=== PATIENT | female | born 1960 | race Caucasian/White ===

== ENCOUNTER → 2016-09-11 | Outpatient (CLI) | payer MEDICAID ==
[2016-09-11 16:52] VITALS: BP 143/67; PULSE 61; RESP 16; TEMP 97.7; BMI 58.3
[2016-09-11 17:35] LABS: CHCM 31.3; HCT 40.4 % (34.0-46.0); HDW 2.51; HGB 13.1 gm/dL (11.4-16.0); Hypochromasia Slight; MCHC 32.3 g/dL (31.0-37.0); MCV 83.5 fL (80.0-100.0); Mean Platelet Volume 7.9; RBC 4.84 m/uL (3.80-5.40); RDW 15.6 % (11.5-15.5)
[2016-09-11 17:39] LABS: Prothrombin Time 10.3 sec (9.0-12.0)
[2016-09-11 17:51] LABS: ALT 36 U/L (9-52); AST 23 U/L (14-36); Alkaline Phosphatase 51 U/L (38-126); Anion Gap 12 mmol/L; Blood Urea Nitrogen 23 mg/dL (7-17); Calcium 9.8 mg/dL (8.4-10.2); Carbon Dioxide 26 mmol/L (22-30); Chloride 103 mmol/L (98-107); Cholesterol 186 mg/dL (<200); Glucose 126 mg/dL (74-99); HDL Cholesterol 58 mg/dL (40-60); Iron 54 ug/dL (37-170); Magnesium 1.9 mg/dL (1.6-2.3); Non-African American GFR(MDRD) >60 (>60 ml/min/1.73 sqM); Potassium 4.4 mmol/L (3.5-5.1); Sodium 141 mmol/L (137-145); Total Bilirubin 0.5 mg/dL (0.2-1.3); Total Protein 6.5 g/dL (6.3-8.2); Triglycerides 163 mg/dL (<150)
[2016-09-11 18:01] LABS: % Iron Saturation 16.3 % (20-50); Prealbumin 22 mg/dL (18-36); Total Iron Binding Capacity 331 ug/dL (265-497)
[2016-09-11 18:56] LABS: Vitamin B12 331 pg/mL (239-931)
[2016-09-11 19:27] LABS: Hemoglobin A1C 7.5 % (4.2-6.1)
--- NOTE | 2016-09-13 09:24 | P.PN ---
Progress Note - Text To Whom It May Concern: Keara Martin is under my surgical care. She has a complicated postoperative recovery including persistent abdominal pain which will require at least another 2 weeks of recovery. Her abdominal pain limits her day-to-day activities and is being managed closely. Anticipated return to work without restrictions is 09/29/2016. Feel free to contact us if questions. Sincerely Nisa Cabrera MD, FACS, FICS, Dip ABOM Director of [facility]
[2016-09-19 18:11] LABS: Selenium 147 mcg/L (63-160)
--- NOTE | 2016-09-22 20:18 | P.PN ---
Progress Note - Text DATE OF SERVICE: 09/11/2016 CHIEF COMPLAINT: Follow-up gastric bypass. HISTORY OF PRESENT ILLNESS: Keara Martin is a 56-year-old female who is status post Michael-en-Y gastric bypass on 08/05/2016. Since her procedure still reports chronic abdominal pain at her incision. Her pain is specific at the left upper quadrant. She reports eating only 75 grams daily of her protein. Of good news, she no longer has any heartburn. She is still taking omeprazole. Prior to surgery she had weighed as much as 296 pounds. Today she comes in weighing 253 pounds. She has lost approximately 43 pounds since being in the program. PHYSICAL EXAM: VITAL SIGNS: 97.7, 61, 16, 143/67; 5 foot 4-3/4 inch, 253 pounds. Body mass index of 42.9. ABDOMEN: Protuberant, soft, however, focal persistent tenderness along the left upper quadrant. No palpable incisional hernias at this time. MUSCULOSKELETAL: No clubbing, cyanosis, or edema. GENERAL: Well-developed female, in no acute distress. HEENT: No scleral icterus. Extraocular movements grossly intact. Moist buccal mucosa. NECK: Supple without lymphadenopathy. CHEST: Nonlabored respirations with equal bilateral excursions. CARDIOVASCULAR: Regular rate and rhythm. Palpable 2+ radial pulses. NEURO: No focal or lateralizing signs. Cranial nerves II through XII grossly within normal limits. PSYCH: Appropriate affect. Alert and oriented to person, place, and time. ASSESSMENT: 1. Morbid obesity due to excess calories. 2. Status post Michael-en-Y gastric bypass. 3. Body mass index reduced from 50.8 down to 42.9. 4. Persistent left upper quadrant abdominal pain. 5. Dietary surveillance and counseling. 6. Diabetes type 2, insulin-dependent, controlled. 7. Personal history of diabetes associated with nephropathy. PLAN: 1. Recommend bariatric metabolic panel. 2. At this time she still has persistent pain, which puts her at risk for postsurgical complications. I have strictly forewarned her from going back to work prematurely. I recommend return to work at least another 2 more weeks; otherwise in the beginning of September without restrictions. 3. May return to work on September 29, 2016. 4. In the interim, she will continue to stay on omeprazole for pouch care. 5. She has history of being on insulin and has discontinued this at this time. ADDENDUM: LABS: Hemoglobin normal at 13.1. RDW elevated at 15.6. BUN elevated at 23. Glucose elevated at 126. Hemoglobin A1c down from 8 to 7.5. Percent iron saturation was 16.3. Triglycerides elevated at 163. 1. Upon review of her bariatric metabolic panel, HgA1C has improved. She reports not taking any further medications for her blood sugars. 2. Recommend tight glycemic control, particularly of protein diet with goal over 75 grams daily.
== END | disposition home or self-care (01) ==
LOC: BARWHC3 15:56
PROVIDERS: ATTEND Surgery Plastic and Reconstructive Surgery
DX: Z48.815 Encounter for surgical aftercare following surgery on the digestive system (principal); E66.01 Morbid (severe) obesity due to excess calories; Z68.41 Body mass index [BMI] 40.0-44.9, adult; Z98.84 Bariatric surgery status; G89.28 Other chronic postprocedural pain; Z71.3 Dietary counseling and surveillance; E11.21 Type 2 diabetes mellitus with diabetic nephropathy; Z79.4 Long term (current) use of insulin; Z79.899 Other long term (current) drug therapy
CPT/HCPCS: 80053; 80061; 82306; 82525; 82607; 82728; 82746; 83036; 83540; 83550; 83735; 83970; 84100; 84134; 84255; 84425; 84443; 84590; 84630; 85027; 85610; 85730; 99211

== ENCOUNTER → 2016-11-07 | Outpatient (CLI) | payer MEDICAID ==
[2016-11-07 11:56] VITALS: BMI 39.3
[2016-11-07 13:47] VITALS: BP 146/93; PULSE 64; TEMP 98.2
[2016-11-07 14:42] LABS: CH 27.6; HCT 41.3 % (34.0-46.0); HGB 13.6 gm/dL (11.4-16.0); MCH 27.6 pg (25.0-35.0); MCHC 32.9 g/dL (31.0-37.0); Mean Platelet Volume 8.4; RBC 4.91 m/uL (3.80-5.40); RDW 15.3 % (11.5-15.5); WBC 5.7 k/uL (3.8-10.6)
[2016-11-07 14:46] LABS: INR 1.1 (<1.1); Partial Thromboplastin Time 24.1 sec (22.0-30.0); Prothrombin Time 10.7 sec (9.0-12.0)
[2016-11-07 14:49] LABS: ALT 45 U/L (9-52); AST 32 U/L (14-36); Alkaline Phosphatase 61 U/L (38-126); Anion Gap 10 mmol/L; Blood Urea Nitrogen 21 mg/dL (7-17); Calcium 9.7 mg/dL (8.4-10.2); Carbon Dioxide 30 mmol/L (22-30); Chloride 102 mmol/L (98-107); Cholesterol 191 mg/dL (<200); Glucose 135 mg/dL (74-99); HDL Cholesterol 56 mg/dL (40-60); Iron 48 ug/dL (37-170); Magnesium 1.8 mg/dL (1.6-2.3); Non-African American GFR(MDRD) >60 (>60 ml/min/1.73 sqM); Phosphorous 4.5 mg/dL (2.5-4.5); Potassium 4.3 mmol/L (3.5-5.1); Sodium 142 mmol/L (137-145); Total Bilirubin 0.7 mg/dL (0.2-1.3); Triglycerides 213 mg/dL (<150)
[2016-11-07 14:59] LABS: % Iron Saturation 14.3 % (20-50); Prealbumin 21 mg/dL (18-36); Total Iron Binding Capacity 335 ug/dL (265-497)
[2016-11-07 15:54] LABS: Vitamin B12 728 pg/mL (239-931)
[2016-11-07 16:11] LABS: Hemoglobin A1C 7.7 % (4.2-6.1)
[2016-11-13 15:37] LABS: Selenium 147 mcg/L (63-160)
--- NOTE | 2016-12-12 06:30 | P.PN ---
Progress Note - Text DATE OF SERVICE: 11/07/2016 CHIEF COMPLAINT: Bariatric assessment. HISTORY OF PRESENT ILLNESS: Keara Martin is status post Michael-en-Y gastric bypass on 08/05/2016. She is now 3 months out. Her highest weight in the program was 296 pounds. Today she comes weighing 236 pounds. At her 5 feet 4-3/4 inches frame, her ideal body weight is 149 pounds. She has lost 60 pounds. Percent excess weight loss is 41%. Body mass index is reduced from 49.7 down to 39.7. BMI point reduction is 10 points. She is 87 pounds overweight. In fact, she has been discontinued on over 30+ medications. She is barely on any insulin. Blood sugars are between 90 to 120 blood sugar glucose. PAST MEDICAL HISTORY: 1. Morbid obesity. 2. Insulin-dependent type 2, poorly controlled. 3. Kidney stones. 4. Gastroesophageal reflux disease. 5. Hiatal hernia. 6. Osteoarthritis of the right knee. 7. Osteoarthritis of the left shoulder. 8. Bladder incontinence. 9. Panniculitis. 10. Uterine polyps. 11. Hypercholesterolemia. 12. Neuropathy. 13. Diverticulosis. 14. Chronic constipation. PAST SURGICAL HISTORY: 1. Colonoscopy. 2. Upper endoscopy. 3. Dilatation and curettage. 4. EGD. 5. Status post Michael-en-Y gastric bypass on 08/05/2016. MEDICATIONS: 1. Omeprazole. 2. Nystatin. 3. Gabapentin. 4. Flexeril. ALLERGIES: Denies. 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 No reports of Crohn disease or ulcerative colitis. No reports of esophageal or stomach cancer. No reports of food allergies. No reports of lupus. REVIEW OF SYSTEMS: CONSTITUTIONAL: Highest weight of 296 pounds. [place] body weight is 149 pounds. She is 236 pounds. Weight loss 60 pounds. She has 41% excess weight loss. She has lost 17 pounds in one month. ENDOCRINE: Complete resolution of diabetes type 2. RESPIRATORY: Moderate reduction of oxygen for CPAP machine. CARDIOVASCULAR: Resolved hypertension. HEENT: Denies any active trouble with vision or hearing. No reports of poor dentition. RESPIRATORY: She does have history of daytime somnolence. No recent sleep apnea evaluation, however. It is pending however. GASTROINTESTINAL: Resolved gastroesophageal reflux disease. No reports of chronic diarrhea. Does report fatty food intolerance. MUSCULOSKELETAL: Has degenerative joint disease of the lumbar spine. Also reports osteoarthritis of the knee as well as shoulder is improved. NEUROLOGIC: No reports of stroke or seizure disorders. PSYCH: No reports of active depression or suicidal ideation. HEMATOLOGIC: Denies any easy bruising or bleeding. Denies any known family history of DVT. PSYCH: No reports of depression or suicidal ideation. PHYSICAL EXAM: VITAL SIGNS: 98.2, 64, 146/93, 14; 5 feet 4-3/4 inch frame, 236 pounds, body mass index of 39.7. ABDOMEN: Soft, nontender, nondistended. Panniculitis. No palpable incisional hernias. GENERAL: Well-developed female in no acute distress. HEENT: No scleral icterus. Extraocular movements grossly intact. Moist buccal mucosa. NECK: Supple without lymphadenopathy. CHEST: Nonlabored respirations with equal bilateral excursions. CARDIOVASCULAR: Regular rate and rhythm. Palpable 2+ radial pulses. MUSCULOSKELETAL: No clubbing, cyanosis, or edema. NEURO: No focal or lateralizing signs. Cranial nerves II through XII grossly within normal limits. PSYCH: Appropriate affect. Alert and oriented to person, place, and time. ASSESSMENT: 1. Morbid obesity due to excess caloric intake. 2. Body mass index reduced from 49.7 down to 39.7. 3. Dietary surveillance and counseling. 4. Gastroesophageal reflux disease. 5. History of iron deficiency anemia. 6. Insulin-dependent diabetes type 2, resolved. 7. Osteoarthritis of the lower back, improved. 8. Osteoarthritis of the knee, improved. 9. History of gallbladder disease. 10. Familial history of morbid obesity. 11. History of bladder incontinence. 12. Personal history of panniculitis. 13. Hypercholesterolemia. 14. History of diabetes associated neuropathy. 15. Chronic gastritis. 16. Superficial gastric ulcers. 17. Dietary surveillance and counseling. 18. Hypertensive heart disease without cardiomyopathy or heart failure. 19. Michael-en-Y gastric bypass. 20. Obstructive sleep apnea, resolved. 21. Panniculitis. PLAN: 1. Recommend bariatric metabolic panel for follow-up. 2. She has panniculitis. Recommend nystatin powder. 3. Overall she has done fairly well losing 60 pounds in 3 months. LABS: BUN elevated at 21. Glucose elevated at 135. Hemoglobin A1c reduced from 8 down to 7.7. Percent iron saturation low at 14.3. Triglycerides 213.
== END | disposition home or self-care (01) ==
LOC: BARWHC3 11:30
PROVIDERS: ATTEND Surgery Plastic and Reconstructive Surgery
DX: Z48.815 Encounter for surgical aftercare following surgery on the digestive system (principal); E66.01 Morbid (severe) obesity due to excess calories; Z71.3 Dietary counseling and surveillance; Z68.39 Body mass index [BMI] 39.0-39.9, adult; Z98.84 Bariatric surgery status
CPT/HCPCS: 80053; 80061; 82306; 82525; 82607; 82728; 82746; 83036; 83540; 83550; 83735; 83970; 84100; 84134; 84255; 84425; 84443; 84590; 84630; 85027; 85610; 85730; 99211

== ENCOUNTER → 2017-03-05 | Outpatient (CLI) | payer MEDICAID ==
[2017-03-05 15:36] VITALS: BP 128/69; PULSE 59; RESP 16; TEMP 98.2; BMI 36.1
[2017-03-05 17:45] LABS: CH 27.4; CHCM 33.5; HCT 39.7 % (34.0-46.0); HDW 2.67; HGB 13.8 gm/dL (11.4-16.0); MCH 28.5 pg (25.0-35.0); MCHC 34.7 g/dL (31.0-37.0); MCV 82.2 fL (80.0-100.0); RBC 4.84 m/uL (3.80-5.40); RDW 13.8 % (11.5-15.5); WBC 6.2 k/uL (3.8-10.6)
[2017-03-05 17:51] LABS: INR 1.1 (<1.1); Partial Thromboplastin Time 24.7 sec (22.0-30.0); Prothrombin Time 10.6 sec (9.0-12.0)
[2017-03-05 18:02] LABS: ALT 53 U/L (9-52); AST 35 U/L (14-36); Alkaline Phosphatase 68 U/L (38-126); Anion Gap 11 mmol/L; Blood Urea Nitrogen 22 mg/dL (7-17); Calcium 9.9 mg/dL (8.4-10.2); Carbon Dioxide 28 mmol/L (22-30); Chloride 104 mmol/L (98-107); Cholesterol 168 mg/dL (<200); Glucose 104 mg/dL (74-99); HDL Cholesterol 64 mg/dL (40-60); Iron 69 ug/dL (37-170); Magnesium 1.8 mg/dL (1.6-2.3); Non-African American GFR(MDRD) >60 (>60 ml/min/1.73 sqM); Phosphorous 4.5 mg/dL (2.5-4.5); Potassium 4.1 mmol/L (3.5-5.1); Sodium 143 mmol/L (137-145); Total Bilirubin 0.7 mg/dL (0.2-1.3); Total Protein 6.9 g/dL (6.3-8.2)
[2017-03-05 18:19] LABS: % Iron Saturation 18.5 % (20-50); Prealbumin 22 mg/dL (18-36); Total Iron Binding Capacity 373 ug/dL (265-497)
[2017-03-05 19:05] LABS: Vitamin B12 931 pg/mL (239-931)
[2017-03-05 20:18] LABS: Hemoglobin A1C 6.8 % (4.2-6.1)
[2017-03-11 16:44] LABS: Selenium 133 mcg/L (63-160)
--- NOTE | 2017-04-05 12:13 | P.PN ---
Progress Note - Text DATE OF SERVICE: 03/05/2017 CHIEF COMPLAINT: Bariatric assessment. HISTORY OF PRESENT ILLNESS: Keara Martin is status post Michael-en-Y gastric bypass on 08/05/2016. She is 7 months out. Her highest weight in the program was 296 pounds. Today she comes weighing 215 pounds. At her 5 feet 4-3/4 inches frame, her ideal body weight is 144 pounds. She has lost 81 pounds. Since her last follow-up 4 months ago, she lost another 21 pounds. Percent excess weight loss is 53%. She has to improve her daily activities. Body mass index is reduced from 49.7 down to 36.1. BMI point reduction is 13.6 points. She is 71 pounds overweight. She has stopped her insulin as her blood sugars are consistently under 150. Her personal goal is to get down to 192 pounds. She reports chronic panniculitis. She reports mild improvement of her blood pressure. She reports improvement of her osteoarthritis. She now presents for her over 6 month follow-up. PAST MEDICAL HISTORY: 1. Morbid obesity. 2. Insulin-dependent type 2, poorly controlled. 3. Kidney stones. 4. Gastroesophageal reflux disease. 5. Hiatal hernia. 6. Osteoarthritis of the right knee. 7. Osteoarthritis of the left shoulder. 8. Bladder incontinence. 9. Panniculitis. 10. Uterine polyps. 11. Hypercholesterolemia. 12. Neuropathy. 13. Diverticulosis. 14. Chronic constipation. PAST SURGICAL HISTORY: 1. Colonoscopy. 2. Upper endoscopy. 3. Dilatation and curettage. 4. EGD. 5. Status post Michael-en-Y gastric bypass on 08/05/2016. MEDICATIONS: 1. Omeprazole. 2. Nystatin. 3. Gabapentin. 4. Flexeril. ALLERGIES: Denies. 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 No reports of Crohn disease or ulcerative colitis. No reports of esophageal or stomach cancer. No reports of food allergies. No reports of lupus. REVIEW OF SYSTEMS: CONSTITUTIONAL: Highest weight of 296 pounds. [place] body weight is 144 pounds. She is 215 pounds. Weight loss 81 pounds. She has 53 % excess weight loss. She has lost 21 pounds in 4 months. ENDOCRINE: Complete resolution of diabetes type 2. No thyroid disorder. RESPIRATORY: Sleep apnea resolved. No pneumonia. CARDIOVASCULAR: Resolved hypertension. Improved hyperlipidemia. HEENT: Denies any active trouble with vision or hearing. No reports of poor dentition. GASTROINTESTINAL: Resolved gastroesophageal reflux disease. No reports of dumping syndrome. MUSCULOSKELETAL: Has degenerative joint disease of the lumbar spine improved. Also reports osteoarthritis of the knee as well as shoulder is improved. NEUROLOGIC: No reports of stroke or seizure disorders. PSYCH: No reports of active depression or suicidal ideation. HEMATOLOGIC: Denies any easy bruising or bleeding. Denies any known family history of DVT. PSYCH: No reports of depression or suicidal ideation. SKIN: No rash or history of skin cancer. PHYSICAL EXAM: VITAL SIGNS: 5 feet 4-3/4 inch frame, 215 pounds, body mass index of 36.1. Vital Signs Temp 98.2 F 03/05/17 15:29 Pulse 59 L 03/05/17 15:29 Resp 16 03/05/17 15:29 BP 128/69 03/05/17 15:29 Pulse Ox ABDOMEN: Soft, nontender, nondistended. Panniculitis. No palpable incisional hernias. GENERAL: Well-developed female in no acute distress. HEENT: No scleral icterus. Extraocular movements grossly intact. Moist buccal mucosa. NECK: Supple without lymphadenopathy. CHEST: Nonlabored respirations with equal bilateral excursions. CARDIOVASCULAR: Regular rate and rhythm. Palpable 2+ radial pulses. MUSCULOSKELETAL: No clubbing, cyanosis, or edema. NEURO: No focal or lateralizing signs. Cranial nerves II through XII grossly within normal limits. PSYCH: Appropriate affect. Alert and oriented to person, place, and time. SKIN: Well perfused. Good skin turgor. LABS: Laboratory Last Values WBC 6.2 k/uL (3.8-10.6) 03/05/17 16:49 RBC 4.84 m/uL (3.80-5.40) 03/05/17 16:49 Hgb 13.8 gm/dL (11.4-16.0) 03/05/17 16:49 Hct 39.7 % (34.0-46.0) 03/05/17 16:49 MCV 82.2 fL (80.0-100.0) 03/05/17 16:49 MCH 28.5 pg (25.0-35.0) 03/05/17 16:49 MCHC 34.7 g/dL (31.0-37.0) 03/05/17 16:49 RDW 13.8 % (11.5-15.5) 03/05/17 16:49 Plt Count 258 k/uL (150-450) 03/05/17 16:49 PT 10.6 sec (9.0-12.0) 03/05/17 16:49 INR 1.1 (<1.1) 03/05/17 16:49 APTT 24.7 sec (22.0-30.0) 03/05/17 16:49 Sodium 143 mmol/L (137-145) 03/05/17 16:49 Potassium 4.1 mmol/L (3.5-5.1) 03/05/17 16:49 Chloride 104 mmol/L (98-107) 03/05/17 16:49 Carbon Dioxide 28 mmol/L (22-30) 03/05/17 16:49 Anion Gap 11 mmol/L 03/05/17 16:49 BUN 22 mg/dL (7-17) H 03/05/17 16:49 Creatinine 0.80 mg/dL (0.52-1.04) 03/05/17 16:49 Est GFR (MDRD) Af Amer >60 (>60 ml/min/1.73 sqM) 03/05/17 16:49 Est GFR (MDRD) Non-Af >60 (>60 ml/min/1.73 sqM) 03/05/17 16:49 Glucose 104 mg/dL (74-99) H 03/05/17 16:[address] Glu mg/dL 148 mg/dL 03/05/17 16:49 Hemoglobin A1c 6.8 % (4.2-6.1) H 03/05/17 16:49 Calcium 9.9 mg/dL (8.4-10.2) 03/05/17 16:49 Phosphorus 4.5 mg/dL (2.5-4.5) 03/05/17 16:49 Magnesium 1.8 mg/dL (1.6-2.3) 03/05/17 16:49 Iron 69 ug/dL (37-170) 03/05/17 16:49 TIBC 373 ug/dL (265-497) 03/05/17 16:49 % Saturation 18.5 % (20-50) L 03/05/17 16:49 Ferritin 10 ng/mL (11-264) L 03/05/17 16:49 Total Bilirubin 0.7 mg/dL (0.2-1.3) 03/05/17 16:49 AST 35 U/L (14-36) 03/05/17 16:49 ALT 53 U/L (9-52) H 03/05/17 16:49 Alkaline Phosphatase 68 U/L (38-126) 03/05/17 16:49 Total Protein 6.9 g/dL (6.3-8.2) 03/05/17 16:49 Albumin 4.4 g/dL (3.5-5.0) 03/05/17 16:49 Prealbumin 22 mg/dL (18-36) 03/05/17 16:49 Triglycerides 116 mg/dL (<150) 03/05/17 16:49 Cholesterol 168 mg/dL (<200) 03/05/17 16:49 LDL Cholesterol, Calc 81 mg/dL (0-99) 03/05/17 16:49 HDL Cholesterol 64 mg/dL (40-60) H 03/05/17 16:49 Vitamin A 41 ug/dL (38-106) 03/05/17 16:49 Vitamin B1 66 ug/L (38-122) 03/05/17 16:49 Vitamin B12 931 pg/mL (239-931) 03/05/17 16:49 Vitamin D 25-Hydroxy 42.7 ng/mL (30.0-100.0) 03/05/17 16:49 Folate >20.00 ng/mL (>2.75) 03/05/17 16:49 TSH 1.360 mIU/L (0.465-4.680) 03/05/17 16:49 PTH Intact 44.0 pg/mL (14.0-72.0) 03/05/17 16:49 Copper 1159 ug/L (810-1990) 03/05/17 16:49 Selenium 133 mcg/L (63-160) 03/05/17 16:49 Zinc 74 ug/dL (60-130) 03/05/17 16:49 ASSESSMENT: 1. Morbid obesity due to excess caloric intake. 2. Body mass index reduced from 49.7 down to 36.1. 3. Dietary surveillance and counseling. 4. Gastroesophageal reflux disease, resolved. 5. History of iron deficiency anemia. 6. Insulin-dependent diabetes type 2, resolved. 7. Osteoarthritis of the lower back, improved. 8. Osteoarthritis of the knee, improved. 9. History of gallbladder disease. 10. Familial history of morbid obesity. 11. History of bladder incontinence, improved. 12. Personal history of panniculitis. 13. Hypercholesterolemia, improved. 14. History of diabetes associated neuropathy. 15. Hypertensive heart disease without cardiomyopathy or heart failure, improved. 16. Michael-en-Y gastric bypass. 17. Obstructive sleep apnea, resolved. 18. Panniculitis. PLAN: 1. Recommend bariatric metabolic panel. 2. Nystatin powder for panniculitis. 3. May need panniculectomy for chronic panniculitis. 4. Follow-up in 3 months for gastric bypass. 5. Her blood sugar glucose is has moderately improved.
== END ==
LOC: BARWHC3 15:29
PROVIDERS: ATTEND Surgery Plastic and Reconstructive Surgery
DX: Z48.815 Encounter for surgical aftercare following surgery on the digestive system (principal); E66.01 Morbid (severe) obesity due to excess calories; M47.816 Spondylosis without myelopathy or radiculopathy, lumbar region; M17.9 Osteoarthritis of knee, unspecified; K82.9 Disease of gallbladder, unspecified; R32 Unspecified urinary incontinence; M79.3 Panniculitis, unspecified; E78.00 Pure hypercholesterolemia, unspecified; I11.9 Hypertensive heart disease without heart failure; E21.1 Secondary hyperparathyroidism, not elsewhere classified; E89.1 Postprocedural hypoinsulinemia; D50.8 Other iron deficiency anemias; K90.89 Other intestinal malabsorption; E44.0 Moderate protein-calorie malnutrition; E55.9 Vitamin D deficiency, unspecified; K74.1 Hepatic sclerosis; N19 Unspecified kidney failure; K50.90 Crohn's disease, unspecified, without complications; Z86.2 Personal history of diseases of the blood and blood-forming organs and certain disorders involving the immune mechanism; Z68.36 Body mass index [BMI] 36.0-36.9, adult; Z98.84 Bariatric surgery status; Z79.899 Other long term (current) drug therapy
CPT/HCPCS: 36415; 80053; 80061; 82306; 82525; 82607; 82728; 82746; 83036; 83540; 83550; 83735; 83970; 84100; 84134; 84255; 84425; 84443; 84590; 84630; 85027; 85610; 85730; 97803; 99211

== ENCOUNTER → 2017-05-15 | Outpatient (CLI) | payer MEDICAID ==
[2017-05-15 11:03] VITALS: BP 135/78; PULSE 63; RESP 16; TEMP 98.5; BMI 34.3
[2017-05-15 12:33] LABS: CH 28.7; CHCM 33.7; HCT 39.8 % (34.0-46.0); HDW 2.52; HGB 13.8 gm/dL (11.4-16.0); MCH 29.6 pg (25.0-35.0); MCHC 34.6 g/dL (31.0-37.0); MCV 85.6 fL (80.0-100.0); Mean Platelet Volume 8.8; RBC 4.65 m/uL (3.80-5.40); RDW 15.1 % (11.5-15.5)
[2017-05-15 12:41] LABS: Partial Thromboplastin Time 24.1 sec (22.0-30.0); Prothrombin Time 10.3 sec (9.0-12.0)
[2017-05-15 15:00] LABS: ALT 41 U/L (9-52); AST 29 U/L (14-36); Alkaline Phosphatase 76 U/L (38-126); Anion Gap 7 mmol/L; Blood Urea Nitrogen 21 mg/dL (7-17); Calcium 9.9 mg/dL (8.4-10.2); Carbon Dioxide 27 mmol/L (22-30); Chloride 106 mmol/L (98-107); Cholesterol 194 mg/dL (<200); Glucose 177 mg/dL (74-99); HDL Cholesterol 62 mg/dL (40-60); Magnesium 1.8 mg/dL (1.6-2.3); Non-African American GFR(MDRD) >60 (>60 ml/min/1.73 sqM); Phosphorus 4.3 mg/dL (2.5-4.5); Potassium 4.7 mmol/L (3.5-5.1); Sodium 140 mmol/L (137-145); Total Bilirubin 0.6 mg/dL (0.2-1.3); Total Protein 6.6 g/dL (6.3-8.2)
[2017-05-15 15:48] LABS: Vitamin B12 627 pg/mL (239-931)
[2017-05-15 19:10] LABS: Iron Saturation 25.31 (12.00-45.00); Iron(FE) 81 ug/dL (50-170); Total Iron Binding Capacity 320 ug/dL (228-460)
[2017-05-15 20:40] LABS: Hemoglobin A1C 7.1 % (4.2-6.1)
[2017-05-21 19:17] LABS: Selenium 112 mcg/L (63-160)
--- NOTE | 2017-05-25 21:28 | P.PN ---
Progress Note - Text DATE OF SERVICE: 05/15/2017 CHIEF COMPLAINT: Follow gastric bypass. HISTORY OF PRESENT ILLNESS: Keara Martin is status post Michael-en-Y gastric bypass on 08/05/2016. She is 9 months out. Her highest weight in the program was 296 pounds. Today she comes weighing 205 pounds. At her 5 feet 4-3/4 inches frame, her ideal body weight is 144 pounds. She has lost 91 pounds. Since her last follow-up 4 months ago, she lost another 10 pounds. Percent excess weight loss is 60%. Body mass index is reduced from 49.7 down to 34.4. She is 61 pounds overweight. She reports kidney stones. Her blood sugars averaging 120s. Her diabetes has moderately improved. PAST MEDICAL HISTORY: 1. Morbid obesity. 2. Insulin-dependent type 2, poorly controlled. 3. Kidney stones. 4. Gastroesophageal reflux disease. 5. Hiatal hernia. 6. Osteoarthritis of the right knee. 7. Osteoarthritis of the left shoulder. 8. Bladder incontinence. 9. Panniculitis. 10. Uterine polyps. 11. Hypercholesterolemia. 12. Neuropathy. 13. Diverticulosis. 14. Chronic constipation. PAST SURGICAL HISTORY: 1. Colonoscopy. 2. Upper endoscopy. 3. Dilatation and curettage. 4. EGD. 5. Status post Michael-en-Y gastric bypass on 08/05/2016. MEDICATIONS: 1. Omeprazole. 2. Nystatin. 3. Gabapentin. 4. Flexeril. ALLERGIES: Denies. 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 No reports of Crohn disease or ulcerative colitis. No reports of esophageal or stomach cancer. No reports of food allergies. No reports of lupus. REVIEW OF SYSTEMS: CONSTITUTIONAL: Highest weight of 296 pounds. [place] body weight is 144 pounds. She is 205 pounds. Weight loss 91 pounds. She has 60 % excess weight loss. She has lost 10 pounds in 3 months. ENDOCRINE: Complete resolution of diabetes type 2. No thyroid disorder. RESPIRATORY: Sleep apnea resolved. No pneumonia. CARDIOVASCULAR: Resolved hypertension. Improved hyperlipidemia. HEENT: Denies any active trouble with vision or hearing. No reports of poor dentition. GASTROINTESTINAL: Resolved gastroesophageal reflux disease. No reports of dumping syndrome. MUSCULOSKELETAL: Has degenerative joint disease of the lumbar spine improved. Also reports osteoarthritis of the knee as well as shoulder is improved. NEUROLOGIC: No reports of stroke or seizure disorders. PSYCH: No reports of active depression or suicidal ideation. HEMATOLOGIC: Denies any easy bruising or bleeding. Denies any known family history of DVT. PSYCH: No reports of depression or suicidal ideation. SKIN: No rash or history of skin cancer. PHYSICAL EXAM: VITAL SIGNS: 5 feet 4-3/4 inch frame, 205 pounds, body mass index of 34.4. Vital Signs Temp 98.5 F 05/15/17 11:00 Pulse 63 05/15/17 11:00 Resp 16 05/15/17 11:00 BP 135/78 05/15/17 11:00 Pulse Ox ABDOMEN: Soft, nontender, nondistended. No palpable incisional hernias. GENERAL: Well-developed female in no acute distress. HEENT: No scleral icterus. Extraocular movements grossly intact. Moist buccal mucosa. NECK: Supple without lymphadenopathy. CHEST: Nonlabored respirations with equal bilateral excursions. CARDIOVASCULAR: Regular rate and rhythm. Palpable 2+ radial pulses. MUSCULOSKELETAL: No clubbing, cyanosis, or edema. NEURO: No focal or lateralizing signs. Cranial nerves II through XII grossly within normal limits. PSYCH: Appropriate affect. Alert and oriented to person, place, and time. SKIN: Well perfused. Good skin turgor. LABS: Laboratory Last Values WBC 6.0 k/uL (3.8-10.6) 05/15/17 12:10 RBC 4.65 m/uL (3.80-5.40) 05/15/17 12:10 Hgb 13.8 gm/dL (11.4-16.0) 05/15/17 12:10 Hct 39.8 % (34.0-46.0) 05/15/17 12:10 MCV 85.6 fL (80.0-100.0) 05/15/17 12:10 MCH 29.6 pg (25.0-35.0) 05/15/17 12:10 MCHC 34.6 g/dL (31.0-37.0) 05/15/17 12:10 RDW 15.1 % (11.5-15.5) 05/15/17 12:10 Plt Count 238 k/uL (150-450) 05/15/17 12:10 PT 10.3 sec (9.0-12.0) 05/15/17 12:10 INR 1.0 (<1.2) 05/15/17 12:10 APTT 24.1 sec (22.0-30.0) 05/15/17 12:10 Sodium 140 mmol/L (137-145) 05/15/17 12:10 Potassium 4.7 mmol/L (3.5-5.1) 05/15/17 12:10 Chloride 106 mmol/L (98-107) 05/15/17 12:10 Carbon Dioxide 27 mmol/L (22-30) 05/15/17 12:10 Anion Gap 7 mmol/L 05/15/17 12:10 BUN 21 mg/dL (7-17) H 05/15/17 12:10 Creatinine 0.80 mg/dL (0.52-1.04) 05/15/17 12:10 Est GFR (MDRD) Af Amer >60 (>60 ml/min/1.73 sqM) 05/15/17 12:10 Est GFR (MDRD) Non-Af >60 (>60 ml/min/1.73 sqM) 05/15/17 12:10 Glucose 177 mg/dL (74-99) H 05/15/17 12:[address] Glu mg/dL 157 mg/dL 05/15/17 12:10 Hemoglobin A1c 7.1 % (4.2-6.1) H 05/15/17 12:10 Calcium 9.9 mg/dL (8.4-10.2) 05/15/17 12:10 Phosphorus 4.3 mg/dL (2.5-4.5) 05/15/17 12:10 Magnesium 1.8 mg/dL (1.6-2.3) 05/15/17 12:10 Iron 81 ug/dL (50-170) 05/15/17 12:10 TIBC 320 ug/dL (228-460) 05/15/17 12:10 Iron Saturation 25.31 (12.00-45.00) 05/15/17 12:10 Ferritin 15.7 ng/mL (10.0-291.0) 05/15/17 12:10 Total Bilirubin 0.6 mg/dL (0.2-1.3) 05/15/17 12:10 AST 29 U/L (14-36) 05/15/17 12:10 ALT 41 U/L (9-52) 05/15/17 12:10 Alkaline Phosphatase 76 U/L (38-126) 05/15/17 12:10 Total Protein 6.6 g/dL (6.3-8.2) 05/15/17 12:10 Albumin 4.0 g/dL (3.5-5.0) 05/15/17 12:10 Prealbumin 22.0 mg/dL (18.0-42.0) 05/15/17 12:10 Triglycerides 186 mg/dL (<150) H 05/15/17 12:10 Cholesterol 194 mg/dL (<200) 05/15/17 12:10 LDL Cholesterol, Calc 95 mg/dL (0-99) 05/15/17 12:10 HDL Cholesterol 62 mg/dL (40-60) H 05/15/17 12:10 Vitamin A 43 ug/dL (38-106) 05/15/17 12:10 Vitamin B1 81 ug/L (38-122) 05/15/17 12:10 Vitamin B12 627 pg/mL (239-931) 05/15/17 12:10 Vitamin D 25-Hydroxy 34.9 ng/mL (30.0-100.0) 05/15/17 12:10 Folate >24.0 ng/mL 05/15/17 12:10 TSH 1.070 mIU/L (0.465-4.680) 05/15/17 12:10 PTH Intact 49.4 pg/mL (14.0-72.0) 05/15/17 12:10 Copper 1160 ug/L (810-1990) 05/15/17 12:10 Selenium 112 mcg/L (63-160) 05/15/17 12:10 Zinc 98 ug/dL (60-130) 05/15/17 12:10 ASSESSMENT: 1. Morbid obesity due to excess caloric intake. 2. Body mass index reduced from 49.7 down to 34.4. 3. Dietary surveillance and counseling. 4. Gastroesophageal reflux disease, resolved. 5. History of iron deficiency anemia. 6. Insulin-dependent diabetes type 2, resolved. 7. Osteoarthritis of the lower back, improved. 8. Osteoarthritis of the knee, improved. 9. History of gallbladder disease. 10. Familial history of morbid obesity. 11. History of bladder incontinence, improved. 12. Personal history of panniculitis. 13. Hypercholesterolemia, improved. 14. History of diabetes associated neuropathy. 15. Hypertensive heart disease without cardiomyopathy or heart failure, improved. 16. Michael-en-Y gastric bypass. 17. Obstructive sleep apnea, resolved. 18. Panniculitis. 19. Kidney stones. PLAN: 1. Recommend bariatric metabolic panel. 2. With her History of kidney stones, she is at risk developing gallstones. 3. Recommend abdominal imaging including computed tomography scan and ultrasound. 4. Hemoglobin A1c has improved from 8 to 7.1. Recommend ketogenic diet. 5. Follow-up July 2017.
== END | disposition home or self-care (01) ==
LOC: BARWHC3 10:27
PROVIDERS: ATTEND Surgery Plastic and Reconstructive Surgery
DX: E66.01 Morbid (severe) obesity due to excess calories (principal); M79.3 Panniculitis, unspecified; N20.0 Calculus of kidney; Z98.84 Bariatric surgery status; Z71.3 Dietary counseling and surveillance; Z68.34 Body mass index [BMI] 34.0-34.9, adult; Z79.899 Other long term (current) drug therapy
CPT/HCPCS: 80053; 80061; 82306; 82525; 82607; 82728; 82746; 83036; 83540; 83550; 83735; 83970; 84100; 84134; 84255; 84425; 84443; 84590; 84630; 85027; 85610; 85730; 97802; 99211

== ENCOUNTER → 2017-09-24 | Outpatient (CLI) | payer MEDICAID ==
[2017-09-24 15:26] VITALS: BP 141/77; PULSE 71; RESP 16; TEMP 98.2; BMI 33.3
--- NOTE | 2017-10-26 19:49 | P.PN ---
Subjective Progress Note Date: 09/24/17 DATE OF SERVICE: 09/24/2017 CHIEF COMPLAINT: Panniculitis HISTORY OF PRESENT ILLNESS: Keara Martin is status post Michael-en-Y gastric bypass on 08/05/2016. She is over 1 year out. Her highest weight in the program was 296 pounds. Today she comes weighing 198 pounds. In 1 month, she has lost another 5 pounds. Her main concern today includes chronic panniculitis. She reports chronic ulcers along the pannus despite use nystatin powder. Separately, she has chronic kidney stones. At her 5 feet 4-3/4 inches frame, her ideal body weight is 144 pounds. She has lost 98 pounds. Percent excess weight loss is 64%. Body mass index is reduced from 50.5 down to 33.3. She is 54 pounds overweight. PAST MEDICAL HISTORY: 1. Morbid obesity. 2. Diabetes type 2. 3. Kidney stones. 4. Gastroesophageal reflux disease. 5. Hiatal hernia. 6. Osteoarthritis of the right knee. 7. Osteoarthritis of the left shoulder. 8. Bladder incontinence. 9. Panniculitis. 10. Uterine polyps. 11. Hypercholesterolemia. 12. Neuropathy. 13. Diverticulosis. 14. Chronic constipation. PAST SURGICAL HISTORY: 1. Colonoscopy. 2. Upper endoscopy. 3. Dilatation and curettage. 4. EGD. 5. Status post Michael-en-Y gastric bypass on 08/05/2016. MEDICATIONS: 1. Omeprazole. 2. Nystatin. 3. Gabapentin. 4. Flexeril. ALLERGIES: Denies. 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 No reports of Crohn disease or ulcerative colitis. No reports of esophageal or stomach cancer. No reports of food allergies. No reports of lupus. REVIEW OF SYSTEMS: CONSTITUTIONAL: Highest weight of 296 pounds. [place] body weight is 144 pounds. She is 198 pounds. Weight loss 98 pounds. She has 64% excess weight loss. She has lost 5 pounds in 1 months. ENDOCRINE: Off medications for diabetes type 2. No thyroid disorder. RESPIRATORY: Sleep apnea resolved. No pneumonia. CARDIOVASCULAR: Resolved hypertension. Improved hyperlipidemia. HEENT: Denies any active trouble with vision or hearing. No reports of poor dentition. GASTROINTESTINAL: Resolved gastroesophageal reflux disease. No reports of dumping syndrome. MUSCULOSKELETAL: Has degenerative joint disease of the lumbar spine improved. Also reports osteoarthritis of the knee as well as shoulder is improved. NEUROLOGIC: No reports of stroke or seizure disorders. PSYCH: No reports of active depression or suicidal ideation. HEMATOLOGIC: Denies any easy bruising or bleeding. Denies any known family history of DVT. PSYCH: No reports of depression or suicidal ideation. SKIN: No rash or history of skin cancer. PHYSICAL EXAM: VITAL SIGNS: 5 feet 4-3/4 inch frame, 1 pounds, body mass index of 33.3 Vital Signs Temp 98.2 F 09/24/17 15:23 Pulse 71 09/24/17 15:23 Resp 16 09/24/17 15:23 BP 141/77 09/24/17 15:23 Pulse Ox ABDOMEN: Soft, nontender, nondistended. No palpable incisional hernias. GENERAL: Well-developed female in no acute distress. HEENT: No scleral icterus. Extraocular movements grossly intact. Moist buccal mucosa. NECK: Supple without lymphadenopathy. CHEST: Nonlabored respirations with equal bilateral excursions. CARDIOVASCULAR: Regular rate and rhythm. Palpable 2+ radial pulses. MUSCULOSKELETAL: No clubbing, cyanosis, or edema. NEURO: No focal or lateralizing signs. Cranial nerves II through XII grossly within normal limits. PSYCH: Appropriate affect. Alert and oriented to person, place, and time. SKIN: Well perfused. Good skin turgor. Pannus over pubis by 6 cm. Weight of pannus over 7 pounds. LABS: Laboratory Last Values WBC 7.2 k/uL (3.8-10.6) 08/20/17 15: RBC 4.27 m/uL (3.80-5.40) 08/20/17 15:27 Hgb 11.7 gm/dL (11.4-16.0) 08/20/17 15: Hct 37.5 % (34.0-46.0) 08/20/17 15:27 MCV 87.9 fL (80.0-100.0) 08/20/17 15: MCH 27.5 pg (25.0-35.0) 08/20/17 15:27 MCHC 31.3 g/dL (31.0-37.0) 08/20/17 15:27 RDW 14.7 % (11.5-15.5) 08/20/17 15:27 Plt Count 229 k/uL (150-450) 08/20/17 15:27 PT 10.3 sec (9.0-12.0) 08/20/17 15:27 INR 1.1 (<1.2) 08/20/17 15:27 APTT 25.8 sec (22.0-30.0) 08/20/17 15:27 Sodium 138 mmol/L (137-145) 08/20/17 15:27 Potassium 4.0 mmol/L (3.5-5.1) 08/20/17 15: Chloride 100 mmol/L (98-107) 08/20/17 15: Carbon Dioxide 31 mmol/L (22-30) H 08/20/17 15:27 Anion Gap 7 mmol/L 08/20/17 15:27 BUN 10 mg/dL (7-17) 08/20/17 15:27 Creatinine 0.70 mg/dL (0.52-1.04) 08/20/17 15:27 Est GFR (MDRD) Af Amer >60 (>60 ml/min/1.73 sqM) 08/20/17 15:27 Est GFR (MDRD) Non-Af >60 (>60 ml/min/1.73 sqM) 08/20/17 15:27 Glucose 156 mg/dL (74-99) H 08/20/17 15:[address] Glu mg/dL 154 08/20/17 15:27 Hemoglobin A1c 7.0 % (4.0-6.0) H 08/20/17 15:27 Calcium 9.4 mg/dL (8.4-10.2) 08/20/17 15:27 Phosphorus 4.0 mg/dL (2.5-4.5) 08/20/17 15:27 Magnesium 1.6 mg/dL (1.6-2.3) 08/20/17 15:27 Iron 26 ug/dL (50-170) L 08/20/17 15:27 TIBC 323 ug/dL (228-460) 08/20/17 15:27 Iron Saturation 8.05 (12.00-45.00) L 08/20/17 15:27 Ferritin 39.1 ng/mL (10.0-291.0) 08/20/17 15:27 Total Bilirubin 0.7 mg/dL (0.2-1.3) 08/20/17 15:27 AST 25 U/L (14-36) 08/20/17 15:27 ALT 47 U/L (9-52) 08/20/17 15: Alkaline Phosphatase 66 U/L (38-126) 08/20/17 15:27 Total Protein 6.3 g/dL (6.3-8.2) 08/20/17 15: Albumin 3.7 g/dL (3.5-5.0) 08/20/17 15: Prealbumin 13.0 mg/dL (18.0-42.0) L 08/20/17 15:27 Triglycerides 118 mg/dL (<150) 08/20/17 15: Cholesterol 176 mg/dL (<200) 08/20/17 15: LDL Cholesterol, Calc 84 mg/dL (0-99) 08/20/17 15: HDL Cholesterol 68 mg/dL (40-60) H 08/20/17 15:27 Vitamin A 24 ug/dL (38-106) L 08/20/17 15: Vitamin B1 89 ug/L (38-122) 08/20/17 15: Vitamin B12 610.0 pg/mL (200.0-944.0) 08/20/17 15: Vitamin D 25-Hydroxy 31.4 ng/mL (30.0-100.0) 08/20/17 15: Folate >24.0 ng/mL 08/20/17 15:27 TSH 0.872 mIU/L (0.465-4.680) 08/20/17 15:27 PTH Intact 73.1 pg/mL (14.0-72.0) H 08/20/17 15: Copper 1119 ug/L (810-1990) 08/20/17 15:27 Selenium 131 mcg/L (63-160) 08/20/17 15: Zinc 73 ug/dL (60-130) 08/20/17 15:27 Iron is low. Prealbumin is low. Vitamin A is low. PTH is elevated. ASSESSMENT: 1. Morbid obesity due to excess caloric intake. 2. Body mass index reduced from 50.5 down to 33.3. 3. Dietary surveillance and counseling. 4. Gastroesophageal reflux disease, resolved. 5. History of iron deficiency anemia. 6. Insulin-dependent diabetes type 2, resolved. 7. Osteoarthritis of the lower back, improved. 8. Osteoarthritis of the knee, improved. 9. History of gallbladder disease. 10. Familial history of morbid obesity. 11. History of bladder incontinence, improved. 12. Personal history of panniculitis. 13. Hypercholesterolemia, improved. 14. History of diabetes associated neuropathy. 15. Hypertensive heart disease without cardiomyopathy or heart failure, improved. 16. Michael-en-Y gastric bypass. 17. Obstructive sleep apnea, resolved. 18. Panniculitis. 19. Kidney stones. PLAN: 1. Recommend iron supplement and iron infusion. 2. Recommend protein intake over 75 g to address low prealbumin. 3. Recommend vitamin A rich foods including vitamin A supplement. 4. Recommend calcium intake over 1200 1500 mg daily. 5. Nystatin powder written for panniculitis. 6. She still looking for additional weight loss prior to evaluation panniculectomy. 7. Additionally, recommend correction of all nutritional deficiencies prior to surgical intervention. Objective - Vital Signs Vital signs: Vital Signs Temp 98.2 F 09/24/17 15:23 Pulse 71 09/24/17 15:23 Resp 16 09/24/17 15:23 BP 141/77 09/24/17 15:23 Pulse Ox Intake & Output 09/23/17 09/24/17 09/24/17 18:59 06:59 18:59 Weight 90.066 kg
== END | disposition home or self-care (01) ==
LOC: BARWHC3 14:15
PROVIDERS: ATTEND Surgery Plastic and Reconstructive Surgery
DX: Z09 Encounter for follow-up examination after completed treatment for conditions other than malignant neoplasm (principal); M79.3 Panniculitis, unspecified; E66.01 Morbid (severe) obesity due to excess calories; D50.9 Iron deficiency anemia, unspecified; M47.9 Spondylosis, unspecified; M17.9 Osteoarthritis of knee, unspecified; M19.019 Primary osteoarthritis, unspecified shoulder; R32 Unspecified urinary incontinence; E78.00 Pure hypercholesterolemia, unspecified; G62.9 Polyneuropathy, unspecified; I11.9 Hypertensive heart disease without heart failure; N20.0 Calculus of kidney; K44.9 Diaphragmatic hernia without obstruction or gangrene; M17.11 Unilateral primary osteoarthritis, right knee; M19.012 Primary osteoarthritis, left shoulder; N84.0 Polyp of corpus uteri; K59.09 Other constipation; K57.90 Diverticulosis of intestine, part unspecified, without perforation or abscess without bleeding; Z98.84 Bariatric surgery status; Z87.19 Personal history of other diseases of the digestive system; Z83.49 Family history of other endocrine, nutritional and metabolic diseases; Z68.33 Body mass index [BMI] 33.0-33.9, adult; Z71.3 Dietary counseling and surveillance; Z79.899 Other long term (current) drug therapy
CPT/HCPCS: 99211

== ENCOUNTER → 2018-01-07 | Outpatient (CLI) | payer MEDICAID ==
[2018-01-07 14:09] VITALS: BP 125/77; PULSE 64; RESP 16; TEMP 98; BMI 32.7
--- NOTE | 2018-01-07 15:59 | P.PN ---
Subjective Progress Note Date: 01/07/18 HPI: She comes in with severe panniculitis. No reports of abdominal pain. Blood sugars are doing well of 90s to 120s. ABDOMEN: Soft, nontender and nondistended. Has severe panniculitis. Weight of pannus of 10 pounds. PLAN: 1. Get photos for panniculitis. 2. She wants to loose more weight to 150-lbs. 3. She over 1 year out from surgery. 4. She needed iron infusions in the past. Will need repeat blood work. 5. Went over expectations for a panniculectomy. 6. Follow up after anticipated weight loss. 7. Nystatin powder for panniculitis. Objective - Vital Signs Vital signs: Vital Signs Temp 98 F 01/07/18 14:06 Pulse 64 01/07/18 14:06 Resp 16 01/07/18 14:06 BP 125/77 01/07/18 14:06 Pulse Ox Intake & Output 01/06/18 01/07/18 01/07/18 18:59 06:59 18:59 Weight 88.451 kg
[2018-01-07 18:04] LABS: HCT 39.4 % (34.0-46.0); MCH 28.9 pg (25.0-35.0); MCV 87.6 fL (80.0-100.0); Mean Platelet Volume 7.8; Platelet Count 237 k/uL (150-450); RBC 4.51 m/uL (3.80-5.40); RDW 14.4 % (11.5-15.5); WBC 5.4 k/uL (3.8-10.6)
[2018-01-07 18:07] LABS: Partial Thromboplastin Time 23.9 sec (22.0-30.0); Prothrombin Time 9.8 sec (9.0-12.0)
[2018-01-07 18:12] LABS: ALT 47 U/L (9-52); AST 36 U/L (14-36); Albumin 4.4 g/dL (3.5-5.0); Alkaline Phosphatase 56 U/L (38-126); Anion Gap 13 mmol/L; Blood Urea Nitrogen 26 mg/dL (7-17); Calcium 9.7 mg/dL (8.4-10.2); Carbon Dioxide 28 mmol/L (22-30); Chloride 103 mmol/L (98-107); Cholesterol 206 mg/dL (<200); Glucose 113 mg/dL (74-99); HDL Cholesterol 84 mg/dL (40-60); LDL Cholesterol,Calculated 101 mg/dL (0-99); Magnesium 1.9 mg/dL (1.6-2.3); Phosphorus 4.5 mg/dL (2.5-4.5); Potassium 4.3 mmol/L (3.5-5.1); Sodium 144 mmol/L (137-145); Total Bilirubin 0.7 mg/dL (0.2-1.3); Total Protein 6.8 g/dL (6.3-8.2); Triglycerides 105 mg/dL (<150)
[2018-01-08 01:13] LABS: Iron Saturation 23.78 (12.00-45.00)
[2018-01-08 01:23] LABS: Vitamin D 25 Hydroxy 43.7 ng/mL (30.0-100.0)
[2018-01-08 01:26] LABS: Folate, Serum >24.0 ng/mL
[2018-01-08 01:36] LABS: Hemoglobin A1C 6.6 % (4.0-6.0)
[2018-01-08 02:05] LABS: Parathyroid Hormone Intact 71.6 pg/mL (14.0-72.0)
[2018-01-09 15:30] LABS: Zinc, Serum 74 ug/dL (60-130)
[2018-01-10 10:12] LABS: Vitamin A 47 ug/dL (38-106)
[2018-01-12 06:15] LABS: Vitamin B1 83 ug/L (38-122)
[2018-01-13 16:53] LABS: Selenium 118 mcg/L (63-160)
== END | disposition home or self-care (01) ==
LOC: BARWHC3 13:20
PROVIDERS: ATTEND Surgery Plastic and Reconstructive Surgery
DX: M79.3 Panniculitis, unspecified (principal); E66.01 Morbid (severe) obesity due to excess calories; E21.1 Secondary hyperparathyroidism, not elsewhere classified; E89.1 Postprocedural hypoinsulinemia; D50.9 Iron deficiency anemia, unspecified; K90.9 Intestinal malabsorption, unspecified; E55.9 Vitamin D deficiency, unspecified; K74.1 Hepatic sclerosis; N19 Unspecified kidney failure; K50.90 Crohn's disease, unspecified, without complications; Z68.32 Body mass index [BMI] 32.0-32.9, adult
CPT/HCPCS: 36415; 80053; 80061; 82306; 82525; 82607; 82728; 82746; 83036; 83540; 83550; 83735; 83970; 84100; 84134; 84255; 84425; 84443; 84590; 84630; 85027; 85610; 85730; 99211

== ENCOUNTER → 2019-07-28 | Outpatient (CLI) | payer MEDICAID ==
[2019-07-28 13:55] VITALS: BP 131/75; PULSE 70; TEMP 98.2; BMI 32.2
--- NOTE | 2019-07-28 14:08 | P.PN ---
Subjective Progress Note Date: 07/28/19 She is 3 years out. No abdominal pain. Off insulin. Weight loss of 100 pounds. She is happy. She has troubles with pasta. She has rare dysphagia once per month. Recommend labs. Has panniculitis over 3 years. Recommend Nystatin Objective - Vital Signs Vital signs: Vital Signs Temp 98.2 F 07/28/19 13:24 Pulse 70 07/28/19 13:24 Resp BP 131/75 07/28/19 13:24 Pulse Ox Intake & Output 07/27/19 07/28/19 07/28/19 18:59 06:59 18:59 Weight 87.18 kg
[2019-07-28 15:55] LABS: HCT 40.8 % (34.0-46.0); HGB 13.5 gm/dL (11.4-16.0); MCH 29.5 pg (25.0-35.0); MCHC 33.1 g/dL (31.0-37.0); MCV 88.9 fL (80.0-100.0); Mean Platelet Volume 7.8; Platelet Count 228 k/uL (150-450); RBC 4.59 m/uL (3.80-5.40); RDW 13.6 % (11.5-15.5); WBC 5.5 k/uL (3.8-10.6)
[2019-07-28 16:00] LABS: Partial Thromboplastin Time 26.1 sec (22.0-30.0); Prothrombin Time 10.4 sec (9.0-12.0)
[2019-07-29 00:20] LABS: Hemoglobin A1C 6.2 % (4.0-6.0)
[2019-07-29 01:36] LABS: % Iron Saturation 20.81 (12.00-45.00); ALT 37 U/L (8-44); AST 35 U/L (13-35); African American GFR (CKD) 94.9 (60.0-200.0); Albumin/Globulin Ratio 2.65 (1.60-3.17); Alkaline Phosphatase 63 U/L (41-126); BUN/Creat Ratio 31.25 Ratio (12.00-20.00); Calcium 9.7 mg/dL (8.7-10.3); Carbon Dioxide 31.1 mmol/L (21.6-31.8); Chloride 107 mmol/L (96-109); Chol/HDL Ratio 2.26; Cholesterol 192 mg/dL (0-200); Globulin 1.7 g/dL (1.6-3.3); Glucose 111 mg/dL (70-110); Iron 67 ug/dL (50-170); Magnesium 1.8 mg/dL (1.5-2.4); Non-African American GFR(CKD) 81.8 (60.0-200.0); Phosphorus 4.1 mg/dL (2.4-5.1); Sodium 144 mmol/L (135-145); Total Bilirubin 0.7 mg/dL (0.3-1.2); Total Iron Binding Capacity 322 ug/dL (228-460); Total Protein 6.2 g/dL (6.2-8.2)
[2019-07-29 01:44] LABS: Ferritin 141.9 ng/mL (10.0-291.0)
[2019-07-29 02:18] LABS: Folate, Serum >24.0 ng/mL
[2019-07-29 12:56] LABS: Zinc, Serum 92 ug/dL (60-130)
[2019-07-30 06:24] LABS: Vitamin A 60 ug/dL (38-106)
[2019-07-30 06:49] LABS: Vit B1(Thiamine) 56 ug/L (38-122)
== END ==
LOC: BARWHC3 12:38
PROVIDERS: ATTEND Surgery Plastic and Reconstructive Surgery
DX: M79.3 Panniculitis, unspecified (principal); E66.01 Morbid (severe) obesity due to excess calories; E21.1 Secondary hyperparathyroidism, not elsewhere classified; E89.1 Postprocedural hypoinsulinemia; D50.9 Iron deficiency anemia, unspecified; E44.0 Moderate protein-calorie malnutrition; E55.9 Vitamin D deficiency, unspecified; K74.1 Hepatic sclerosis; N19 Unspecified kidney failure; K50.90 Crohn's disease, unspecified, without complications; Z79.899 Other long term (current) drug therapy; Z68.32 Body mass index [BMI] 32.0-32.9, adult
CPT/HCPCS: 36415; 80053; 80061; 82306; 82525; 82607; 82728; 82746; 83036; 83540; 83550; 83735; 83970; 84100; 84134; 84255; 84425; 84443; 84590; 84630; 85027; 85610; 85730; 99211

== ENCOUNTER → 2020-08-02 | Outpatient (CLI) | payer MEDICAID ==
[2020-08-02 18:36] LABS: HCT 38.3 % (34.0-46.0); HGB 12.5 gm/dL (11.4-16.0); MCH 28.8 pg (25.0-35.0); MCHC 32.6 g/dL (31.0-37.0); MCV 88.4 fL (80.0-100.0); Platelet Count 214 k/uL (150-450); RBC 4.33 m/uL (3.80-5.40); RDW 13.8 % (11.5-15.5); WBC 3.6 k/uL (3.8-10.6)
[2020-08-03 00:59] LABS: INR 1.02 (0.90-1.11); Partial Thromboplastin Time 29.6 sec (23.5-31.0)
[2020-08-03 04:27] LABS: Hemoglobin A1C 6.2 % (4.0-6.0)
[2020-08-03 04:36] LABS: % Iron Saturation 20.12 (12.00-45.00); ALT 28 U/L (8-44); AST 31 U/L (13-35); African American GFR (CKD) 94.2 (60.0-200.0); Alkaline Phosphatase 64 U/L (41-126); BUN/Creat Ratio 18.75 Ratio (12.00-20.00); Calcium 9.5 mg/dL (8.7-10.3); Chloride 104 mmol/L (96-109); Chol/HDL Ratio 2.33; Cholesterol 189 mg/dL (0-200); Globulin 1.8 g/dL (1.6-3.3); Glucose 97 mg/dL (70-110); Iron 68 ug/dL (50-170); LDL Cholesterol,Calculated 91.8 mg/dL (0.0-131.0); Magnesium 1.8 mg/dL (1.5-2.4); Non-African American GFR(CKD) 81.3 (60.0-200.0); Phosphorus 3.8 mg/dL (2.4-5.1); Potassium 3.9 mmol/L (3.5-5.5); Sodium 139 mmol/L (135-145); Total Bilirubin 0.7 mg/dL (0.3-1.2); Total Iron Binding Capacity 338 ug/dL (228-460); Total Protein 6.3 g/dL (6.2-8.2)
[2020-08-03 04:47] LABS: Ferritin 67.1 ng/mL (10.0-291.0)
[2020-08-03 05:43] LABS: Folate, Serum >24.0 ng/mL
== END | disposition home or self-care (01) ==
LOC: LABWHC1 16:25
PROVIDERS: ATTEND Surgery Plastic and Reconstructive Surgery
DX: D50.8 Other iron deficiency anemias (principal); E89.1 Postprocedural hypoinsulinemia; K90.89 Other intestinal malabsorption; E55.9 Vitamin D deficiency, unspecified; K74.1 Hepatic sclerosis; N19 Unspecified kidney failure; K50.90 Crohn's disease, unspecified, without complications; E66.01 Morbid (severe) obesity due to excess calories
CPT/HCPCS: 36415; 80053; 80061; 82306; 82525; 82607; 82728; 82746; 83036; 83540; 83550; 83735; 83970; 84100; 84134; 84255; 84425; 84443; 84590; 84630; 85027; 85610; 85730

== ENCOUNTER → 2020-08-02 | Outpatient (CLI) | payer MEDICAID ==
[2020-08-02 15:38] VITALS: BP 137/88; PULSE 66; RESP 18; TEMP 98.1
--- NOTE | 2020-08-02 16:04 | P.PN ---
Subjective Progress Note Date: 08/02/20 DATE OF SERVICE: 08/02/2020 CHIEF COMPLAINT: Status post gastric bypass HISTORY OF PRESENT ILLNESS: Keara Martin is status post Michael-en-Y gastric bypass on 08/05/2016. She is 4 years out. She is losing weight from 296 pounds. She continues to lose weight. She was doing low carbohydrate diet. She is eating 3 meals daily. She is down to 188 pounds. She comes in with persistent panniculitis. She is using prescription powder for her skin. At her 5 feet 4-3/4 inches frame, her ideal body weight is 144 pounds. Her highest weight was 296 pounds, BMI 49.7. She comes in 188 pounds from 192 pounds 1 year ago. She has lost 4 pounds in 1 year. Lifetime weight loss of 108 pounds. Percent excess weight loss is 71%. Body mass index is reduced from 49.6 down to 31.5 PHYSICAL EXAM: VITAL SIGNS: 5 feet 4-3/4 inch frame, 188 pounds, body mass index of 31.5 Vital Signs Temp 98.1 F 08/02/20 15:31 Pulse 66 08/02/20 15:31 Resp 18 08/02/20 15:31 BP 137/88 08/02/20 15:31 Pulse Ox ABDOMEN: Soft, nontender and nondistended. Grade 3 panniculosis. Has panniculitis. GENERAL: Well-developed female in no acute distress. HEENT: No scleral icterus. Extraocular movements grossly intact. Moist buccal mucosa. NECK: Supple without lymphadenopathy. CHEST: Nonlabored respirations with equal bilateral excursions. CARDIOVASCULAR: Regular rate and rhythm. Palpable 2+ radial pulses. MUSCULOSKELETAL: No clubbing, cyanosis, or edema. NEURO: No focal or lateralizing signs. Cranial nerves II through XII grossly within normal limits. PSYCH: Appropriate affect. Alert and oriented to person, place, and time. SKIN: Well perfused. Good skin turgor. ASSESSMENT: 1. Morbid obesity due to excess caloric intake. 2. Body mass index reduced from 49.7 down to 31.5. 3. Dietary surveillance and counseling. 4. Gastroesophageal reflux disease, resolved. 5. History of iron deficiency anemia. 6. Insulin-dependent diabetes type 2, resolved. 7. Osteoarthritis of the lower back, improved. 8. Osteoarthritis of the knee, improved. 9. History of diabetes associated neuropathy. 10. Hypertensive heart disease without cardiomyopathy or heart failure, improved. 11. Michael-en-Y gastric bypass. 12. Panniculitis. 13. Iron deficiency anemia. PLAN: 1. Recommend food diary journal. 2. Recommend bariatric labs. 3. Recommend continue Nystatin powder for panniculitis. Objective - Vital Signs Vital signs: Vital Signs Temp 98.1 F 08/02/20 15:31 Pulse 66 08/02/20 15:31 Resp 18 08/02/20 15:31 BP 137/88 08/02/20 15:31 Pulse Ox Intake & Output 08/01/20 08/02/20 08/02/20 18:59 06:59 18:59 Weight 85.275 kg
== END | disposition home or self-care (01) ==
LOC: BARWHC3 15:09
PROVIDERS: ATTEND Surgery Plastic and Reconstructive Surgery
DX: E66.01 Morbid (severe) obesity due to excess calories (principal); K21.9 Gastro-esophageal reflux disease without esophagitis; I11.9 Hypertensive heart disease without heart failure; M17.10 Unilateral primary osteoarthritis, unspecified knee; E11.40 Type 2 diabetes mellitus with diabetic neuropathy, unspecified; D50.9 Iron deficiency anemia, unspecified; M79.3 Panniculitis, unspecified; M47.816 Spondylosis without myelopathy or radiculopathy, lumbar region; Z98.84 Bariatric surgery status; Z68.42 Body mass index [BMI] 45.0-49.9, adult; Z71.3 Dietary counseling and surveillance; Z86.2 Personal history of diseases of the blood and blood-forming organs and certain disorders involving the immune mechanism; Z79.4 Long term (current) use of insulin; Z87.19 Personal history of other diseases of the digestive system
CPT/HCPCS: 99211

== ENCOUNTER → 2021-08-08 | Outpatient (CLI) | payer MEDICAID ==
[2021-08-08 17:40] LABS: Partial Thromboplastin Time 23.9 sec (22.0-30.0); Prothrombin Time 10.3 sec (9.0-12.0)
[2021-08-08 19:08] LABS: HCT 40.8 % (37.2-46.3); MCH 28.8 pg (27.0-32.0); MCHC 31.9 g/dL (32.0-37.0); MCV 90.5 fL (80.0-97.0); Mean Platelet Volume 11.5 fL (9.5-12.2); Platelet Count 237 X 10*3/uL (140-440); RBC 4.51 X 10*6/uL (4.10-5.20); RDW 13.7 % (11.5-14.5); WBC 4.79 X 10*3/uL (4.50-10.00)
[2021-08-09 02:19] LABS: % Iron Saturation 17.18 (12.00-45.00); ALT 28 U/L (8-44); AST 31 U/L (13-35); African American GFR (CKD) 109.9 (60.0-200.0); Albumin 4.5 g/dL (3.8-4.9); Albumin/Globulin Ratio 2.14 (1.60-3.17); Alkaline Phosphatase 87 U/L (41-126); BUN/Creat Ratio 20.86 Ratio (12.00-20.00); Blood Urea Nitrogen 14.6 mg/dL (9.0-27.0); Calcium 9.5 mg/dL (8.7-10.3); Carbon Dioxide 23.6 mmol/L (20.0-27.5); Chloride 106 mmol/L (96-109); Ferritin 19.5 ng/mL (10.0-291.0); Globulin 2.1 g/dL (1.6-3.3); Glucose 122 mg/dL (70-110); Iron 76 ug/dL (50-170); LDL Cholesterol,Calculated 109.9 mg/dL (0.0-131.0); Non-African American GFR(CKD) 94.8 (60.0-200.0); Phosphorus 4.1 mg/dL (2.4-5.1); Potassium 4.3 mmol/L (3.5-5.5); Prealbumin 22.6 mg/dL (18.0-42.0); Sodium 142 mmol/L (135-145); Total Iron Binding Capacity 442 ug/dL (228-460); Total Protein 6.6 g/dL (6.2-8.2); VLDL Calculation 17.14 mg/dL (5.00-40.00)
[2021-08-09 03:02] LABS: Folate, Serum >20.00 ng/mL (4.40-31.00)
[2021-08-09 13:11] LABS: Zinc, Serum 129 ug/dL (60-130)
[2021-08-10 06:25] LABS: Vitamin A 51 ug/dL (38-106)
[2021-08-10 06:57] LABS: Vit B1(Thiamine) 66 ug/L (38-122)
== END | disposition home or self-care (01) ==
LOC: LABWHC1 14:09
PROVIDERS: ATTEND Surgery Plastic and Reconstructive Surgery
DX: E89.1 Postprocedural hypoinsulinemia (principal); E44.0 Moderate protein-calorie malnutrition; E55.9 Vitamin D deficiency, unspecified; D50.8 Other iron deficiency anemias; K50.90 Crohn's disease, unspecified, without complications; K74.1 Hepatic sclerosis; N19 Unspecified kidney failure
CPT/HCPCS: 36415; 80053; 80061; 82306; 82525; 82607; 82728; 82746; 83036; 83540; 83550; 83735; 83970; 84100; 84134; 84255; 84425; 84443; 84590; 84630; 85027; 85610; 85730